=== PATIENT | female | born 1970 | race American Indian/Alaskan Native ===

== ENCOUNTER 2020-03-25 05:41 | Emergency (ER) | payer SELFPAY ==
[2020-03-25] MEDS ORDERED: ASPIRIN 325 MG TAB PO ONE (06:03)
--- NOTE | 2020-03-25 06:37 | XRay Report ---
CHEST 2 VIEWS INDICATION / CLINICAL INFORMATION: Chest Pain. COMPARISON: None available. FINDINGS: SUPPORT DEVICES: None. HEART / MEDIASTINUM: No significant abnormality. LUNGS / PLEURA: No significant pulmonary or pleural abnormality. No pneumothorax. ADDITIONAL FINDINGS: No significant additional findings. IMPRESSION: 1. No acute findings. Signer Name: Sharath Deleon MD Signed: 03/25/2020 6:33 AM Workstation Name: [id number]
[2020-03-25 08:01] LABS: Hematocrit 41.1 % (30.3-42.9); Hemoglobin 13.9 gm/dl (10.1-14.3); Mean Corpuscular HGB Conc 34 % (30-34); Mean Corpuscular Volume 87 fl (79-97); Platelet Count 236 K/mm3 (140-440); Red Blood Count 4.71 M/mm3 (3.65-5.03); Red Cell Distribution Width 13.9 % (13.2-15.2)
[2020-03-25 08:31] LABS: Hemolysis Index 185
[2020-03-25 08:39] LABS: BUN/Creatinine Ratio TNR; Blood Urea Nitrogen TNR mg/dL (7-17); Calcium TNR mg/dL (8.4-10.2)
[2020-03-25 09:41] LABS: Blood Urea Nitrogen 13 mg/dL (7-17); Calcium 9.4 mg/dL (8.4-10.2); Hemolysis Index 12
[2020-03-25 09:53] LABS: BUN/Creatinine Ratio 22
--- NOTE | 2020-03-25 10:30 | Emergency Department Report ---
ED Chest Pain HPI - General Chief Complaint: Chest Pain Stated Complaint: CHEST PAIN Time Seen by Provider: 03/25/20 07:27 Source: patient Mode of arrival: Ambulatory Limitations: No Limitations - History of Present Illness Initial Comments: This is a 49-year-old female from [place] who has not recently traveled and has lived here for some time. She does not have a physician. She complains of right pectoral pain which does not radiate for more than 2 months. It is intermittent. It is not associated with exertion nor breathing. She has not be en coughing. She denies fever chills, nausea or vomiting. She has difficulty describing the pain. However it does appear to be intermittent, waxing and waning. She denies leg pain or swelling. MD Complaint: chest pain -: Gradual, month(s) Onset: during rest Pain Location: right chest Pain Radiation: none Severity: mild, moderate Quality: other (Could not describe) Consistency: intermittent Improves With: nothing Worsens With: nothing Context: other (None) re: denies: nausea, vomting, diaphoresis Other Symptoms: denies: cough, fever, syncope Aspirin use within the Past 7 Days: (0) No - Related Data Previous Rx's Medication Instructions Recorded Last Taken Type traMADoL [Ultram 50 MG tab] 50 mg PO Q6HR PRN #10 tablet 03/25/20 Unknown Rx Allergies Allergy/AdvReac Type Severity Reaction Status Date / Time No Known Allergies Allergy Verified 12/10/14 11:54 Heart Score - HEART Score History: Slightly suspicious EKG: Normal Age: 45-65 Risk factors: No known risk factors Troponin: < normal limit HEART Score: 1 - Critical Actions Critical Actions: 0-3 pts:0.9-1.7%risk of adverse cardiac event.Candidate for discharge ED Review of Systems ROS: Stated complaint: CHEST PAIN Other details as noted in HPI Constitutional: denies: chills, fever Eyes: denies: eye pain, eye discharge, vision change ENT: denies: ear pain, throat pain Respiratory: denies: cough, shortness of breath, wheezing Cardiovascular: as per HPI, chest pain. denies: palpitations Endocrine: no symptoms reported Gastrointestinal: denies: abdominal pain, nausea, diarrhea Genitourinary: denies: urgency, dysuria, discharge Musculoskeletal: denies: back pain, joint swelling, arthralgia Skin: denies: rash, lesions Neurological: denies: headache, weakness, paresthesias Psychiatric: denies: anxiety, depression Hematological/Lymphatic: denies: easy bleeding, easy bruising ED Past Medical Hx - Past Medical History Previous Medical History?: No Additional medical history: Hepatitis B - Surgical History Additional Surgical History: X 4 - Social History Smoking Status: Never Smoker Substance Use Type: None - Medications Home Medications: Home Medications Medication Instructions Recorded Confirmed Last Taken Type traMADoL [Ultram 50 MG tab] 50 mg PO Q6HR PRN #10 tablet 03/25/20 Unknown Rx ED Physical Exam - General Limitations: No Limitations General appearance: alert, in no apparent distress - Head Head exam: Present: atraumatic, normocephalic - Eye Eye exam: Present: normal appearance. Absent: scleral icterus - ENT ENT exam: Present: mucous membranes moist - Neck Neck exam: Present: normal inspection - Respiratory Respiratory exam: Present: normal lung sounds bilaterally. Absent: respiratory distress - Cardiovascular Cardiovascular Exam: Present: regular rate, normal rhythm. Absent: systolic murmur, diastolic murmur, rubs, gallop - GI/Abdominal GI/Abdominal exam: Present: soft, normal bowel sounds. Absent: distended, tenderness, guarding, rebound, rigid - Extremities Exam Extremities exam: Present: normal inspection, normal capillary refill. Absent: tenderness, pedal edema, joint swelling, calf tenderness - Back Exam Back exam: Present: normal inspection - Neurological Exam Neurological exam: Present: alert, oriented X3, CN II-XII intact - Psychiatric Psychiatric exam: Present: normal affect, normal mood - Skin Skin exam: Present: warm, dry, intact, normal color. Absent: rash ED Course Vital Signs 03/25/20 03/25/20 05:57 07:38 Temperature 98.5 F Pulse Rate 90 72 Respiratory 18 17 Rate Blood Pressure 135/69 Blood Pressure 119/72 [Left] O2 Sat by Pulse 97 100 Oximetry ED Medical Decision Making - Lab Data Result diagrams: 03/25/20 07:40 03/25/20 08:45 Laboratory Results - last 24 hr 03/25/20 03/25/20 03/25/20 07:40 07:40 08:45 WBC 7.4 RBC 4.71 Hgb 13.9 Hct 41.1 MCV 87 MCH 30 MCHC 34 RDW 13.9 Plt Count 236 Lymph % (Auto) Comprehensive Ophthalmologist [place] % (Auto) Comprehensive Ophthalmologist Eos % (Auto) Comprehensive Ophthalmologist Baso % (Auto) Comprehensive Ophthalmologist Lymph # (Auto) Comprehensive Ophthalmologist [place] # (Auto) Comprehensive Ophthalmologist Eos # (Auto) Comprehensive Ophthalmologist Baso # (Auto) Comprehensive Ophthalmologist Seg Neutrophils % Comprehensive Ophthalmologist Seg Neutrophils # Comprehensive Ophthalmologist Sodium TNR 139 Potassium TNR 3.9 Chloride TNR 103.0 Carbon Dioxide TNR 24 Anion Gap TNR 16 BUN TNR 13 Creatinine TNR 0.6 Estimated GFR TNR > 60 BUN/Creatinine Ratio TNR 22 Glucose TNR 83 Calcium TNR 9.4 Troponin T TNR < 0.010 - EKG Data -: EKG Interpreted by Me EKG shows normal: sinus rhythm, axis, intervals, QRS complexes, ST-T waves Rate: normal - EKG Data Interpretation: no acute changes (Essentially normal EKG) Critical care attestation.: If time is entered above; I have spent that time in minutes in the direct care of this critically ill patient, excluding procedure time. ED Disposition Clinical Impression: Right-sided chest pain Disposition: DC- TO HOME OR SELFCARE Is pt being admited?: No Does the pt Need Aspirin: No Condition: Stable Instructions: Chest Pain (ED) Additional Instructions: Further evaluation with a primary care physician is recommended. Return any acute change or problem. Rx as needed for pain. Prescriptions: traMADoL [Ultram 50 MG tab] 50 mg PO Q6HR PRN #10 tablet PRN Reason: Pain Referrals: PRIMARY CARE, [Primary Care Provider] - 3-5 Days [facility] [Provider Group] - 2-3 Days Time of Disposition: 10:31
[2020-03-25 10:55] VITALS: BP 115/70
== END 2020-03-25 10:54 | disposition home or self-care (01) ==
LOC: ED 05:41
DX: R07.89 Other chest pain (principal); Z79.899 Other long term (current) drug therapy
CPT/HCPCS: 36415; 71046; 80048; 84484; 85025; 93005